=== PATIENT | female | born 1975 | race Caucasian/White ===

== ENCOUNTER 2017-05-07 20:08 | Emergency (ER) | payer SELFPAY ==
[~2017-05-07] VITALS: Ht 167.6 cm; Wt 68.0 kg
[2017-05-07] MEDS ORDERED: CEPHALEXIN 500MG CAPSULE PO ONE (23:00)
[2017-05-07] MEDS ORDERED: IBUPROFEN 600MG TABLET PO ONE (23:00)
[2017-05-07 23:08] VITALS: BP 122/96
== END 2017-05-07 23:16 | disposition home or self-care (01) ==
LOC: ER 20:37
DX: S00.11XA Contusion of right eyelid and periocular area, initial encounter (principal); S00.531A Contusion of lip, initial encounter; F17.200 Nicotine dependence, unspecified, uncomplicated; Z88.2 Allergy status to sulfonamides; Z88.5 Allergy status to narcotic agent; Y08.89XA Assault by other specified means, initial encounter; Y93.89 Activity, other specified; Y92.89 Other specified places as the place of occurrence of the external cause; Y99.8 Other external cause status
CPT/HCPCS: 99283; Z7610